=== PATIENT | male | born 1995 | race Caucasian/White ===

== ENCOUNTER → 2017-01-06 | Outpatient (CLI) | payer OTHER | LOC: CARD 08:29 | PROVIDERS: ATTEND Specialist | DX: R41.0 Disorientation, unspecified (principal); R55 Syncope and collapse | CPT/HCPCS: 95816 ==

== ENCOUNTER → 2017-01-09 | Outpatient (CLI) | payer OTHER ==
[~2017-01-09] MED LIST: GADOBUTROL 10 MMOL/10 ML VIAL ONE
== END ==
LOC: CFH 14:55
PROVIDERS: ATTEND Specialist
DX: R41.0 Disorientation, unspecified (principal)
CPT/HCPCS: 70210; 70553; A9585

== ENCOUNTER → 2017-04-09 | Outpatient (CLI) | payer OTHER | END | disposition home or self-care (01) | LOC: CVU 06:33 | PROVIDERS: ATTEND Internal Medicine Cardiovascular Disease | DX: R42 Dizziness and giddiness (principal) | CPT/HCPCS: 93306 ==

== ENCOUNTER 2017-05-14 08:56 | Day surgery (SDC) | payer OTHER ==
[~2017-05-14] VITALS: Ht 185.4 cm; Wt 90.9 kg
[2017-05-14] MEDS ORDERED: no medications (09:16)
[2017-05-14 09:17] VITALS: BP 128/77
[2017-05-14] MEDS ORDERED: ISOPROTERENOL 0.2MG/ML, 5ML ONE (10:34)
== END 2017-05-14 11:30 | disposition home or self-care (01) ==
LOC: CACL 08:56
PROVIDERS: ATTEND Internal Medicine Cardiovascular Disease
DX: R55 Syncope and collapse (principal); Z88.8 Allergy status to other drugs, medicaments and biological substances
CPT/HCPCS: 93660